=== PATIENT | female | born 1945 | race Caucasian/White ===

== ENCOUNTER 2017-12-29 10:14 | Emergency (ER) | payer OTHER ==
[2017-12-29 10:18] VITALS: BMI 25.4
--- NOTE | 2017-12-29 10:33 | PDOC ---
Attending Attestation - Resident Resident Name: Taisha Kay - HPI HPI: 12/29/17 11:44 pt presents to the ED complaining of acute exacerbation of her chronic vertigo. patient has a history of vertigo for which she has taken meclizine in the past. She is not currently taking meclizine. She has been experiencing vertigo , nausea and vomiting for a week, and has difficulty tolerating PO and some unsteadiness <Gladys Corona - Last Filed: 12/29/17 11:36> - Physicial Exam PE: 12/29/17 12:06 GENERAL: Awake, alert, and fully oriented, in no acute distress LUNGS: Breath sounds equal, clear to auscultation bilaterally. No wheezes, and no crackles HEART: Regular rate and rhythm, normal S1 and S2, no murmurs, rubs or gallops ABDOMEN: Soft, nontender, No guarding, no rebound. No masses NEUROLOGICAL: Cranial nerves II through XII grossly intact. Normal speech. - Medical Decision Making 12/29/17 12:06 Documentation prepared by Patricia Golden, acting as medical transcriber for Gladys Corona MD. <Patricia Golden - Last Filed: 12/29/17 12:06>
[2017-12-29] MEDS ORDERED: SODIUM CHLORIDE 0.9% 500 ML INFUS.BAG IV ONE (11:07)
[2017-12-29] MEDS ORDERED: ONDANSETRON *ODT* 4 MG TABLET SL ONE (11:07)
[2017-12-29] MEDS ORDERED: MECLIZINE HCL 25 MG TABLET (FP) PO ONE (11:07)
[2017-12-29 11:30] LABS: BASO % 0.8 % (0-2.0); EOS % 1.5 % (0-4.5); HEMATOCRIT 41.9 % (32.4-45.2); HEMOGLOBIN 13.8 GM/dL (10.7-15.3); MCH 28.2 pg (25.7-33.7); MEAN CELL VOLUME 85.2 fl (80-96); MEAN PLT VOLUME 8.4 fl (7.5-11.1); MONO % 10.3 % (3.8-10.2); NEUT % 54.4 % (42.8-82.8); PLATELET COUNT 243 K/MM3 (134-434); RBC 4.92 M/mm3 (3.60-5.2); RDW 14.3 % (11.6-15.6); WHITE BLOOD COUNT 6.2 K/mm3 (4.0-10.0)
[2017-12-29] MEDS ORDERED: ONDANSETRON *ODT* 4 MG TABLET ONE (11:35)
[2017-12-29] MEDS ORDERED: MECLIZINE HCL 25 MG TABLET (FP) ONE (11:35)
[2017-12-29 11:50] LABS: URINE APPEARANCE CLEAR; URINE BILIRUBIN NEGATIVE (<2.0 mg/dL); URINE COLOR STRAW; URINE GLUCOSE (UA) NEGATIVE (NEGATIVE); URINE KETONE NEGATIVE (NEGATIVE); URINE LEUK ESTERASE NEGATIVE (NEGATIVE); URINE NITRITE NEGATIVE (NEGATIVE); URINE PROTEIN NEGATIVE (NEGATIVE); URINE UROBILINOGEN NEGATIVE mg/dL (0.2-1.0)
[2017-12-29 12:07] LABS: ALBUMIN 3.5 g/dl (3.4-5.0); ALK PHOS 97 U/L (45-117); ANION GAP 7 MMOL/L (8-16); BILIRUBIN,TOTAL 0.4 mg/dL (0.2-1); BLOOD UREA NITROGEN 17 mg/dL (7-18); CALCIUM 8.4 mg/dL (8.5-10.1); CHLORIDE 110 mmol/L (98-107); CO2 26 mmol/L (21-32); CREATININE 0.5 mg/dL (0.55-1.3); GLUCOSE,RANDOM 85 mg/dL (74-106); MAGNESIUM 2.3 mg/dL (1.8-2.4); PHOSPHOROUS 3.3 mg/dL (2.5-4.9); POTASSIUM 4.6 mmol/L (3.5-5.1); SGOT/AST 16 U/L (15-37); SGPT/ALT 33 U/L (13-61); SODIUM 143 mmol/L (136-145); TOT PROT 6.8 g/dl (6.4-8.2)
[2017-12-29 12:21] VITALS: BP 142/74; PULSE 62; TEMP 97.6
--- NOTE | 2017-12-29 12:22 | PDOC ---
History of Present Illness - General Chief Complaint: Lightheaded Stated Complaint: DIZZINESS Time Seen by Provider: 12/29/17 10:32 - History of Present Illness Initial Comments: Neyda Harrell is a 72yo woman with a PMH of chronic vertigo who presents to the ED complaining of a near fall this morning due to dizziness. She describes the dizziness as feeling like the room is spinning, and she admits to having similar symptoms for at least a year. She previously saw a neurologist a year ago and was prescribed a medication that helped, but she never went back to the neurologist for follow up. Ms Harrell reports that in addition to the vertigo, she has had continued nausea with occasional vomiting after eating. She feels that she might be dehydrated as she does not think she is getting enough to eat or drink. She is unable to report exactly when these symptoms started, but she does state that they have been present for more a week. She has been taking ranitidine at home with some improvement, but she says that her regular doctor has not given her any prescriptions to help with the nausea. She also reports severe headache over her entire head. This has also been present for a long time. She is unable to report a pain score or describe the quality of the pain. She has never had her headaches worked up and has not tried taking any medications at home. Ms Harrell reports a fall at home about 2.5 weeks ago; she did not seek medical care at that time. She is concerned that she has a break or bleed in her head causing her headaches. She also states that she has continued right shoulder pain after the fall and is also concerned about a broken bone. She reports normal movement, strength, and sensation in her right arm. She denies any focal neurological symptoms including weakness, numbness/tingling, slurred speech, or facial droop. She denies any acute changes in her symptoms today or over the past few days. She has not had a fever, shivering chills, change in bowel habits, or sick contacts. She does not have any new medications. Past History - Past Medical History Allergies/Adverse Reactions: Allergies Allergy/AdvReac Type Severity Reaction Status Date / Time No Known Allergies Allergy Verified 12/29/17 10:18 Home Medications: Ambulatory Orders Acetaminophen [Tylenol .Regular Strength -] 650 mg PO BID PRN 06/05/13 Alendronate Na [Fosamax (Weekly)] 70 mg PO Q7D 06/05/13 Amlodipine Besylate [Norvasc -] 2.5 mg PO DAILY 06/05/13 Aspirin Coated [Ecotrin -] 81 mg PO DAILY 06/05/13 Cholecalciferol (Vitamin D3) [Vitamin D] 5,000 unit PO WEEKLY 06/05/13 Ketotifen Fumarate [Zaditor] 1 drop OP BID 06/05/13 Loratadine [Claritin -] 10 mg PO DAILY 06/05/13 Meclizine HCl [Antivert -] 12.5 mg PO TID PRN #30 tablet 06/05/13 Multivitamin [Multivitamins] 1 each PO DAILY 06/05/13 Meclizine HCl [Antivert -] 25 mg PO TID PRN 30 Days #90 tablet 12/29/17 Ondansetron [Zofran Odt -] 4 mg SL TID PRN #15 od.tablet 12/29/17 COPD: No HTN: Yes Kidney Stones: Yes - Suicide/Smoking/Psychosocial Hx Smoking History: Never smoked Review of Systems - Review of Systems Comments:: General: No fevers, no chills, no weight or appetite change, no malaise HEENT: No changes in vision, no changes in hearing, no congestion, no sore throat. +JAMA CV: No chest pain, no palpitations, no LE edema Pulm: No SOB, no cough, no wheezing GI: No change in bowel habits, no melena. +nausea and vomiting : No frequency, no urgency, no dysuria Musc: No back pain, no joint swelling. +Rt shoulder pain s/p fall at home ( 2.5mo ago) Skin: No rash, no lesions, no erythema Endo: No excessive thirst, no heat/cold intolerance Heme: No unusual bruising or bleeding, no swollen glands Neuro: No syncope, no numbness/tingling, no focal weakness. +Vertigo Vasc: No claudication Psych: No recent change in mood, no SI or HI *Physical Exam - Vital Signs Last Vital Signs Temp Pulse Resp BP Pulse Ox 97.8 F 68 16 148/68 98 12/29/17 10:15 12/29/17 11:02 12/29/17 11:02 12/29/17 11:02 12/29/17 11:02 - Physical Exam Comments: General: Comfortable, no acute distress HEENT: PERRL, EOMI, MMM, voice normal, normal neck ROM Cards: RRR, no murmur appreciated Pulm: Comfortable on room air, clear to auscultation bilaterally Abd: Soft, nontender, nondistended : No CVA tenderness Ext: Atraumatic. Mild non-pitting BLE edema. ROM intact. Strength 5/5 and equal bilaterally Vasc: Extremities WWP. Skin: Normal color, no rashes or lesions Neuro: A&Ox3, CN grossly intact, normal speech, motor/sensory grossly intact and symmetric. No focal neurological deficits. Psych: Mood appropriate to situation ED Treatment Course - LABORATORY CBC & Chemistry Diagram: 12/29/17 11:12 12/29/17 11:12 - ADDITIONAL ORDERS Additional order review: Laboratory Results 12/29/17 12/29/17 11:28 11:12 WBC 6.2 RBC 4.92 Hgb 13.8 Hct 41.9 MCV 85.2 MCH 28.2 MCHC 33.0 RDW 14.3 Plt Count 243 MPV 8.4 Absolute Neuts (auto) 3.4 Neutrophils % 54.4 D Lymphocytes % 33.0 D Monocytes % 10.3 H Eosinophils % 1.5 Basophils % 0.8 Nucleated RBC % 0 Urine Color Straw Urine Appearance Clear Urine pH 8.0 D Ur Specific [place] 1.014 Urine Protein Negative Urine Glucose (UA) Negative Urine Ketones Negative Urine Blood Negative Urine Nitrite Negative Urine Bilirubin Negative Urine Urobilinogen Negative Ur Leukocyte Esterase Negative 12/29/17 11:12 RBC 4.92 MCV 85.2 MCHC 33.0 RDW 14.3 MPV 8.4 Neutrophils % 54.4 D Lymphocytes % 33.0 D Monocytes % 10.3 H Eosinophils % 1.5 Basophils % 0.8 - RADIOLOGY Radiology Studies Ordered: Category Date Time Status HEAD CT WITHOUT CONTRAST [CT] Stat CT Scan 12/29/17 11:29 Ordered SHOULDER-RIGHT [RAD] Stat Radiology 12/29/17 11:07 Ordered - Medications Given in the ED: ED Medications Discontinued Medications Generic Name Dose Route Start Last Admin Trade Name Freq PRN Reason Stop Dose Admin Meclizine HCl 50 mg 12/29/17 11:07 12/29/17 11:37 Antivert - PO 12/29/17 11:08 50 mg ONCE ONE Administration Ondansetron HCl 4 mg 12/29/17 11:07 12/29/17 11:37 Zofran Odt - SL 12/29/17 11:08 4 mg ONCE ONE Administration Sodium Chloride 1,000 ml 12/29/17 11:07 12/29/17 11:26 Normal Saline - IV 12/29/17 11:08 1,000 ml ONCE ONE Administration Medical Decision Making - Medical Decision Making Age Julio Cesar is a 12/29/17 12:04 - CBC, CMP, mag, phos, UA, urine culture - Rt shoulder xray ordered per patient request - CT head to r/o acute pathology causing headaches - 1L NS bolus, meclizine, zofran for symptoms UPDATE: - Labs unrearkable - UA negative - Imaging without acute pathology - Continues to report headache and nausea, poor appetite - IV famotidine, IV acetaminophen for continued symptoms 12/29/17 14:38 - Able to tolerate PO challenge. Per her nurse, ate entire meal tray. Currently also eating burger/fries. - Discussed negative workup with Ms Harrell and her daughter - Will refer for follow up of headache, vertigo with neurology and shoulder pain with ortho - Discussed discharge, follow up, and return precautions with Ms Harrell and her daughter. They state understanding and agreement. Seen and discussed with Dr Corona. Taisha Kay PGY1 *DC/Admit/Observation/Transfer Diagnosis at time of Disposition: Vertigo Headache Qualifiers: Headache type: unspecified - Discharge Dispostion Disposition: HOME Condition at time of disposition: Stable Decision to Admit order: No - Prescriptions Prescriptions: Meclizine HCl [Antivert -] 25 mg PO TID PRN 30 Days #90 tablet PRN Reason: Vertigo Ondansetron [Zofran Odt -] 4 mg SL TID PRN #15 od.tablet PRN Reason: Nausea And/Or Vomiting - Referrals Referrals: Jennifer Chavira MD [Primary Care Provider] - James Eubanks MD [Staff Physician] - Israel Quiñonez MD [Staff Physician] - - Patient Instructions Printed Discharge Instructions: DI for Vertigo, DI for Shoulder Pain, DI for Headache Additional Instructions: Discharge Instructions: - You were seen in the ED for dizziness, headache, and nausea - All of your blood tests, head CT scan, and shoulder xray were normal - You were given IV hydration, an anti-nausea medication, an anti-vertigo ( dizziness) medication, an antacid, and acetaminophen - You should make follow up appointments with: - Your primary doctor within the next 2-3 days - An orthopedic surgeon, Dr Quiñonez, within the next 1-2 weeks for follow up of your shoulder pain - A neurology, Dr Eubanks, for follow up of your headaches and vertigo - You have been prescribed a medication to help with your dizziness (meclizine) and nausea (ondansetron). Please take as directed. You will need to see your primary physician or a neurologist for refills of these medications. - You may take acetaminophen (Tylenol) or ibuprofen (Motrin, Advil) for headache. Use as directed on the bottle. Check with your primary doctor about continuing ranitidine at home - Seek immediate medical care if you have focal neurological symptoms such as a facial droop, slurred speech, or weakness in one arm or leg; if you have significant vomiting and are unable to take any food or drink by mouth; or if you have sudden onset of a severe headache, especially if you also have neurological symptoms. - Post Discharge Activity Forms/Work/School Notes: Back to Work
[2017-12-29] MEDS ORDERED: ACETAMINOPHEN 1000 MG/100 ML VIAL (NON FORMULARY) IVPB ONE (12:30)
[2017-12-29] MEDS ORDERED: FAMOTIDINE 20 MG/50 ML IVPB 20 MG/50 ML MG IVPB ONE ×2 (12:30→12:44)
[2017-12-29] MEDS ORDERED: ACETAMINOPHEN INJECTION 100 ML IVPB ONE (12:43)
--- NOTE | 2017-12-29 13:53 | EKG ---
Test Reason : Blood Pressure : / mmHG Vent. Rate : 057 BPM Atrial Rate : 057 BPM P-R Int : 170 ms QRS Dur : 092 ms QT Int : 414 ms P-R-T Axes : 049 -15 012 degrees QTc Int : 402 ms SINUS BRADYCARDIA POSSIBLE LEFT ATRIAL ENLARGEMENT INCOMPLETE RIGHT BUNDLE BRANCH BLOCK LEFT VENTRICULAR HYPERTROPHY T WAVE ABNORMALITY, CONSIDER ANTERIOR ISCHEMIA ABNORMAL ECG WHEN COMPARED WITH ECG OF 05-JUN-2013 18:53, NO SIGNIFICANT CHANGE WAS FOUND Confirmed by MD Maria Guadalupe, Emmanuel ([id number]) on 12/29/2017 1:53:38 PM Referred By: Confirmed By:Emmanuel Lerma MD
== END 2017-12-29 14:52 | disposition home or self-care (01) ==
LOC: JER 10:14
PROC: 3E033GC Introduction of Other Therapeutic Substance into Peripheral Vein, Percutaneous Approach (ICD-10-PCS; principal; 2017-12-29)
PROC: 3E033NZ Introduction of Analgesics, Hypnotics, Sedatives into Peripheral Vein, Percutaneous Approach (ICD-10-PCS; 2017-12-29)
DX: R42 Dizziness and giddiness (principal); R51 Headache; Z91.81 History of falling; I10 Essential (primary) hypertension
CPT/HCPCS: 36415; 70450-TC; 73030-TC-RT-FY; 80053; 81003; 83735; 84100; 85025; 87086; 93005; 93010; 96365; 96375; 99284-25; J0131; Q0162

== ENCOUNTER 2019-02-01 19:21 | Emergency (ER) | payer OTHER ==
[2019-02-01 19:26] VITALS: TEMP 98.8; BMI 27.3
[2019-02-01] MEDS ORDERED: ACETAMINOPHEN 500 MG TABLET (FP) PO ONE (20:06)
--- NOTE | 2019-02-01 20:17 | PDOC ---
History of Present Illness - General Chief Complaint: Injury Stated Complaint: FALL Time Seen by Provider: 02/01/19 19:46 History Source: Patient, Care Provider Exam Limitations: No Limitations - History of Present Illness Initial Comments: 02/01/19 20:08 Patient is a 73-year-old female with history of Alzheimer's disease dementia, hypertension, GERD, left hip pain, varicose veins brought by home health aide for complaint of fall today. Home health aide states that she did not witness the fall, however got to the house at 3:00 PM and found the patient crying. Patient then complained that she fell unknown mechanism, but reported that she had pain to the left great toe. Home health aide was concerned because patient has a history of dizziness and high blood pressure so has brought the patient here for evaluation. She states that patient has not been feeling well and has had a cough, runny nose since yesterday. She vomited x2 today and has had decreased appetite but per aide this is usual for her. She received a flu shot 1 month ago. Denies any fever, chills, chest pain, shortness of breath. PMD: Dr. Radha Farley PMHX: as above PSOCHX: Lives at home with his son and a elderly ALL: NKDA GENERAL/CONSTITUTIONAL: [No fever or chills. No weakness. No weight change.] HEAD, EYES, EARS, NOSE AND THROAT: [No change in vision. No ear pain or discharge. No sore throat.] CARDIOVASCULAR: [No chest pain or shortness of breath.] RESPIRATORY: [(+) cough, wheezing, or hemoptysis.] GASTROINTESTINAL: [(+) nausea, vomiting, (-) diarrhea or constipation. No rectal bleeding.] GENITOURINARY: [No dysuria, frequency, or change in urination.] MUSCULOSKELETAL: [(+) joint or muscle swelling or pain. No neck or back pain.] SKIN AND BREASTS: [No rash or easy bruising.] NEUROLOGIC: [No headache, vertigo, loss of consciousness, or loss of sensation.] PSYCHIATRIC: [No depression or anxiety.] ENDOCRINE: [No increased thirst. No abnormal weight change.] HEMATOLOGIC/LYMPHATIC: [No anemia, easy bleeding, or history of blood clots.] ALLERGIC/IMMUNOLOGIC: [No hives or skin allergy. No latex allergy.] GENERAL: [The patient is awake, alert, and fully oriented, in no acute distress. ] HEAD: [Normal with no signs of trauma.] EYES: [Pupils equal, round and reactive to light, extraocular movements intact, sclera anicteric, conjunctiva clear.] ENT: [Ears normal, nares patent, oropharynx clear without exudates. Moist mucous membranes.] NECK: [Normal range of motion, supple without lymphadenopathy, JVD, or masses.] LUNGS: [Breath sounds equal, clear to auscultation bilaterally. No wheezes, and no crackles.] HEART: [Regular rate and rhythm, normal S1 and S2 without murmur, rub.] ABDOMEN: [Soft, nontender, normoactive bowel sounds. No guarding, no rebound. No masses.] EXTREMITIES: [(+) Swelling and ecchymosis to the left great toe, tenderness to palpation, normal range of motion, no edema. No clubbing or cyanosis. No cords , erythema, or tenderness.] NEUROLOGICAL: [Cranial nerves II through XII grossly intact. Normal speech, normal gait.] PSYCH: [Normal mood, normal affect.] SKIN: [Warm, Dry, normal turgor, no rashes or lesions noted.] Past History - Past Medical History Allergies/Adverse Reactions: Allergies Allergy/AdvReac Type Severity Reaction Status Date / Time No Known Allergies Allergy Verified 12/29/17 10:18 Home Medications: Ambulatory Orders Acetaminophen [Tylenol .Regular Strength -] 650 mg PO BID PRN 06/05/13 Alendronate Na [Fosamax (Weekly)] 70 mg PO Q7D 06/05/13 Amlodipine Besylate [Norvasc -] 2.5 mg PO DAILY 06/05/13 Aspirin Coated [Ecotrin -] 81 mg PO DAILY 06/05/13 Cholecalciferol (Vitamin D3) [Vitamin D] 5,000 unit PO WEEKLY 06/05/13 Ketotifen Fumarate [Zaditor] 1 drop OP BID 06/05/13 Loratadine [Claritin -] 10 mg PO DAILY 06/05/13 Meclizine HCl [Antivert -] 12.5 mg PO TID PRN #30 tablet 06/05/13 Multivitamin [Multivitamins] 1 each PO DAILY 06/05/13 Meclizine HCl [Antivert -] 25 mg PO TID PRN 30 Days #90 tablet 12/29/17 Ondansetron [Zofran Odt -] 4 mg SL TID PRN #15 od.tablet 12/29/17 COPD: No HTN: Yes Kidney Stones: Yes - Psycho Social/Smoking Cessation Hx Smoking History: Never smoked *Physical Exam - Vital Signs Last Vital Signs Temp Pulse Resp BP Pulse Ox 98.8 F 76 19 154/76 97 02/01/19 19:23 02/01/19 19:23 02/01/19 19:23 02/01/19 19:23 02/01/19 19:23 ED Treatment Course - LABORATORY CBC & Chemistry Diagram: 02/01/19 20:55 02/01/19 20:55 - RADIOLOGY Radiology Studies Ordered: Category Date Time Status CHEST PA & LAT [RAD] Stat Radiology 02/01/19 20:06 Ordered FOOT-LEFT [RAD] Stat Radiology 02/01/19 20:06 Ordered Medical Decision Making - Medical Decision Making 02/01/19 20:08 Patient is a 73-year-old female with history of Alzheimer's disease dementia, hypertension, GERD, left hip pain, varicose veins brought by home health aide for complaint of fall today. Home health aide states that she did not witness the fall, however got to the house at 3:00 PM and found the patient crying. Patient then complained that she fell unknown mechanism, but reported that she had pain to the left great toe. Home health aide was concerned because patient has a history of dizziness and high blood pressure so has brought the patient here for evaluation. She states that patient has not been feeling well and has had a cough, runny nose since yesterday. She vomited x2 today and has had decreased appetite but per aide this is usual for her. She received a flu shot 1 month ago. Denies any fever, chills, chest pain, shortness of breath. Patient with fall versus syncope Will get labs, EKG, chest x-ray Tylenol for pain Re-eval After the CAT scan was obtained, the aide (who now calls the patient francisco) said that mother told her that she stumped into the wall with her toe and then fell. 02/01/19 22:31 Patient Full Name: [email or web address] AGE Patient Accession No: [id number] Patient : [id number] Reason for Exam: fall Referring Physician: Patient Name: AGE GIANA THIS IS A PRELIMINARY REPORT FROM [facility] EXAM: CT Head wo IMAGES: 230 EXAM DATE AND TIME: 2019-02-01 21:26:33 HISTORY: 73 year old woman:Head trauma following a fall. COMPARISON: None TECHNIQUE: Non-contrast axial images were obtained. Coronal and sagittal images were also generated. FINDINGS: There are no intracranial hemorrhages, brain parenchymal contusion injuries, or imaged calvarial, facial or skull base fractures. There is no subcutaneous soft tissue swelling. The cerebral sulci and ventricles are normal in size. There are no intracranial hemorrhages, extra-axial fluid collections or evidence of an intra-axial mass lesion. There is no evidence of an acute or chronic ischemic lesion at this time. Orbital and petrous structures, cerebellopontine angles, and posterior fossa appear unremarkable. The paranasal and mastoid sinuses are clear. IMPRESSION: Normal CT scan of the head. No calvarial, facial or skull base fractures imaged on the current exam. No intracranial hemorrhages or brain parenchymal contusion injuries. . One or more of the following dose reduction techniques were used: automated exposure control, adjustment of the mA and/or kV according to patient size, use of iterative reconstructive technique. THIS DOCUMENT HAS BEEN ELECTRONICALLY SIGNED Oleg Fuentes MD. 02/01/2019 22:15 SYED Busch Please call Imaging Payroll Master [phone] ([phone]) with questions. INTERPRETING RADIOLOGIST: Oleg Fuentes MD Electronically Signed: Feb 01, 2019 10:15PM EST 02/01/19 22:32 Laboratory Tests 02/01/19 02/01/19 20:55 20:55 WBC 11.0 H Hgb 13.8 Hct 41.8 Plt Count 248 Sodium 141 Potassium 4.5 Chloride 107 Carbon Dioxide 27 Anion Gap 7 L BUN 21.4 H Creatinine 0.8 Troponin I < 0.02 EKG: SR at 62, left axis deviation, incomplete right bundle branch block, T wave inversion V1 to V3 02/01/19 22:47 I discussed the physical exam findings, ancillary test results and final diagnoses with the patient. I answered all of the patient's questions. The patient was satisfied with the care received and felt comfortable with the discharge plan and treatment plan. The Patient agrees to follow up with the primary care physician within 24-72 hours. Discharge - Discharge Information Problems reviewed: Yes Clinical Impression/Diagnosis: Fall Qualifiers: Encounter type: initial encounter Qualified Code(s): W19.XXXA - Unspecified fall, initial encounter Contusion, toe Qualifiers: Encounter type: initial encounter Toe: great toe Damage to nail status: without damage Laterality: left Qualified Code(s): S90.112A - Contusion of left great toe without damage to nail, initial encounter Condition: Stable Disposition: HOME - Follow up/Referral Referrals: Radha Farley MD [Primary Care Provider] - - Patient Discharge Instructions Patient Printed Discharge Instructions: DI for Contusion Additional Instructions: Your Discharge Instructions: You must call primary care physician within 24 hours to arrange follow-up. Return to the Emergency Department with any new, persistent or worsening symptoms, for fever, chills, SOB, dizziness or any other concerning changes that may occur. Continue to ice in 20-minute intervals and elevate the foot. - Post Discharge Activity
[2019-02-01] MEDS ORDERED: ACETAMINOPHEN 325 MG TABLET (FP) ONE (20:19)
[2019-02-01] MEDS ORDERED: FAMOTIDINE 20 MG TABLET PO ONE (20:57)
[2019-02-01] MEDS ORDERED: FAMOTIDINE 20 MG/50 ML IVPB 20 MG/50 ML MG IVPB ONE (21:12)
[2019-02-01 21:28] LABS: HEMATOCRIT 41.8 % (32.4-45.2); HEMOGLOBIN 13.8 GM/dL (10.7-15.3); MCH 28.4 pg (25.7-33.7); MEAN PLT VOLUME 8.9 fl (7.5-11.1); PLATELET COUNT 248 K/MM3 (134-434); RBC 4.86 M/mm3 (3.60-5.2); RDW 14.6 % (11.6-15.6)
[2019-02-01 21:32] LABS: ALBUMIN 3.6 g/dl (3.4-5.0); ALK PHOS 93 U/L (45-117); ANION GAP 7 MMOL/L (8-16); BILIRUBIN,TOTAL 0.4 mg/dL (0.2-1); BLOOD UREA NITROGEN 21.4 mg/dL (7-18); CHLORIDE 107 mmol/L (98-107); CO2 27 mmol/L (21-32); CREATININE 0.8 mg/dL (0.55-1.3); GLUCOSE,RANDOM 90 mg/dL (74-106); POTASSIUM 4.5 mmol/L (3.5-5.1); SGOT/AST 17 U/L (15-37); SGPT/ALT 29 U/L (13-61); SODIUM 141 mmol/L (136-145); TOT PROT 6.9 g/dl (6.4-8.2)
[2019-02-02 00:37] VITALS: BP 150/82; PULSE 80
--- NOTE | 2019-02-02 10:37 | EKG ---
Test Reason : Blood Pressure : / mmHG Vent. Rate : 062 BPM Atrial Rate : 062 BPM P-R Int : 166 ms QRS Dur : 092 ms QT Int : 412 ms P-R-T Axes : 061 -23 014 degrees QTc Int : 418 ms NORMAL SINUS RHYTHM POSSIBLE LEFT ATRIAL ENLARGEMENT INCOMPLETE RIGHT BUNDLE BRANCH BLOCK LEFT VENTRICULAR HYPERTROPHY NONSPECIFIC T WAVE ABNORMALITY ABNORMAL ECG WHEN COMPARED WITH ECG OF 29-DEC-2017 10:32, NO SIGNIFICANT CHANGE WAS FOUND Confirmed by FRANCE MONTESINOS, ANGEL ([id number]) on 02/02/2019 10:37:46 AM Referred By: Confirmed By:ANGEL HOUGH MD
== END 2019-02-02 00:38 | disposition home or self-care (01) ==
LOC: JER 19:21
DX: S90.112A Contusion of left great toe without damage to nail, initial encounter (principal); W18.39XA Other fall on same level, initial encounter; Y93.89 Activity, other specified; Y92.89 Other specified places as the place of occurrence of the external cause; G30.9 Alzheimer's disease, unspecified; F02.80 Dementia in other diseases classified elsewhere, unspecified severity, without behavioral disturbance, psychotic disturbance, mood disturbance, and anxiety; K21.9 Gastro-esophageal reflux disease without esophagitis; M25.552 Pain in left hip
CPT/HCPCS: 36415; 70450-TC; 71046-TC-FY; 73630-TC-LT; 80053; 82550; 84484; 85027; 93005; 93010; 99282-25

== ENCOUNTER 2019-02-27 00:56 | Inpatient (IN) | payer OTHER ==
--- NOTE | 2019-02-27 02:36 | PDOC ---
History of Present Illness - General Chief Complaint: Cold Symptoms Stated Complaint: COUGH Time Seen by Provider: 02/27/19 02:32 - History of Present Illness Initial Comments: 02/27/19 02:36 HPI: 73 y/o F with hx of Alzheimers dementia, HTN, GERD, chronic left hip pain, varicose veins presenting with chronic cough x1 month worsening over the past few days. Patient was seen in an urgent care 3 days ago and started on prednisone and albuterol for dx of bronchitis but symptoms have not improved. Last night the coughing worsened and was associated with SOB, chest pain, and mild apneic episode where patient states she could not breathe. Cough is productive of thick yellow sputum. Chest pain is a deep pain with radiation to the back and with pleurisy. She also reports sore throat. She denies fever, chills, rhinorrhea, n/v, travel, sick contacts. She has taken the flu vaccine this year. PMHx: as noted above ROS: as noted SHx: Denies tobacco use; no alcohol use; no rec drugs Allergies: NKDA ROS: GENERAL/CONSTITUTIONAL: No fever or chills. No weakness. HEAD, EYES, EARS, NOSE AND THROAT: No change in vision. No ear pain or discharge. No sore throat. CARDIOVASCULAR: +chest pain and shortness of breath RESPIRATORY: +cough; no wheezing, or hemoptysis. GASTROINTESTINAL: No nausea, vomiting, diarrhea or constipation. GENITOURINARY: No dysuria, frequency, or change in urination. MUSCULOSKELETAL: No joint or muscle swelling or pain. No neck or back pain. SKIN: No rash NEUROLOGIC: No headache, vertigo, loss of consciousness, or change in strength/ sensation. ENDOCRINE: No increased thirst. No abnormal weight change HEMATOLOGIC/LYMPHATIC: No anemia, easy bleeding, or history of blood clots. ALLERGIC/IMMUNOLOGIC: No hives or skin allergy. PE: GENERAL: Awake, alert, and fully oriented, no acute distress HEAD: No signs of trauma, normocephalic, atraumatic EYES: EOMI, sclera anicteric, conjunctiva clear ENT: Auricles normal inspection, hearing grossly normal, nares patent, oropharynx clear without exudates. Moist mucosa NECK: Normal ROM, no lymphadenopathy LUNGS: No increased work of breathing, symmetrical chest rise, coarse breath sounds in BL lung bases HEART: Regular rate and rhythm, normal S1 and S2, no murmur, peripheral pulses 2 + and equal bilaterally. ABDOMEN: Soft, nondistended, nontender, normoactive bowel sounds. No guarding, no rebound. No masses. No CVAT MUSCULOSKELETAL: Normal inspection, FROM NEUROLOGICAL: Cranial nerves II through XII grossly intact. Normal speech, normal gait, no focal sensorimotor deficits SKIN: Warm, Dry, normal turgor, no rashes or lesions noted Past History - Past Medical History Allergies/Adverse Reactions: Allergies Allergy/AdvReac Type Severity Reaction Status Date / Time No Known Allergies Allergy Verified 02/27/19 02:39 Home Medications: Ambulatory Orders Acetaminophen [Tylenol .Regular Strength -] 650 mg PO BID PRN 06/05/13 Alendronate Na [Fosamax (Weekly)] 70 mg PO Q7D 06/05/13 Amlodipine Besylate [Norvasc -] 2.5 mg PO DAILY 06/05/13 Aspirin Coated [Ecotrin -] 81 mg PO DAILY 06/05/13 Cholecalciferol (Vitamin D3) [Vitamin D] 5,000 unit PO WEEKLY 06/05/13 Ketotifen Fumarate [Zaditor] 1 drop OP BID 06/05/13 Loratadine [Claritin -] 10 mg PO DAILY 06/05/13 Meclizine HCl [Antivert -] 12.5 mg PO TID PRN #30 tablet 06/05/13 Multivitamin [Multivitamins] 1 each PO DAILY 06/05/13 Meclizine HCl [Antivert -] 25 mg PO TID PRN 30 Days #90 tablet 12/29/17 Ondansetron [Zofran Odt -] 4 mg SL TID PRN #15 od.tablet 12/29/17 COPD: No HTN: Yes Kidney Stones: Yes - Psycho Social/Smoking Cessation Hx Smoking History: Never smoked ED Treatment Course - LABORATORY CBC & Chemistry Diagram: 02/27/19 04:10 02/27/19 04:10 Medical Decision Making - Medical Decision Making 02/27/19 06:26 73 y/o F with hx of Alzheimers dementia, HTN, GERD, chronic left hip pain, varicose veins presenting with chronic cough x1 month worsening over the past few days associated with pleuritic chest pain and SOB. VSS, AF. PE with coarse breath sounds in BL lung bases. DDx includes CHF, PNA, Viral syndrome, ACS -cbc, cmp, bnp, trop, ekg, cxr, mg -ofirmev 02/27/19 06:29 WBC 14.4 BNP 504.6 BUN 22 Curb-65 2 points CXR with infiltrate/increased haziness along lateral heart border with concern for pna will admit for iv abx of pna; ceftriaxone and levaquin 2/2 recently on azithro 10 days ago pending mbmd 02/27/19 06:59 signed out to day team to followup admission Discharge - Discharge Information Problems reviewed: Yes Clinical Impression/Diagnosis: PNA (pneumonia) Qualifiers: Pneumonia type: due to unspecified organism Laterality: left Lung location: lower lobe of lung Qualified Code(s): J18.9 - Pneumonia, unspecified organism Condition: Stable - Admission Yes - Follow up/Referral Referrals: Radha Farley MD [Primary Care Provider] - - Patient Discharge Instructions - Post Discharge Activity
[2019-02-27] MEDS ORDERED: ACETAMINOPHEN 1000 MG/100 ML VIAL (NON FORMULARY) IVPB ONE (03:44)
[2019-02-27] MEDS ORDERED: ALBUTEROL SO4 2.5/IPRATROPIUM 0.5 INH SOL 3 ML VIAL.NEB. NEB ONE ×2 (03:44→04:16)
--- NOTE | 2019-02-27 03:58 | PDOC ---
Attending Attestation - Resident Resident Name: Godfrey,Heber - ED Attending Attestation I have performed the following: I have examined & evaluated the patient, The case was reviewed & discussed with the resident, I agree w/resident's findings & plan, Exceptions are as noted - HPI HPI: 03/03/19 01:41 73F pmh HTN, GERD, Alzheimers, with persistent productive cough for the past month, progressively worsening over the past several days. Was given prednisone , albuterol, azithro by urgent care/pcp w/o improvement. Pt here tonight because she has been having paroxysmal coughing with sob and now abdominal wall pain every time she coughs. - Physicial Exam PE: 03/03/19 01:44 Agree with exam as documented by resident - Medical Decision Making 03/03/19 01:45 pna tx failure? bronchitis? consider copd f/u labs, cxr, ekg Patient with severe paroxsymal coughing CXR possible infiltrate will tx presumed infection, symptomatic tx for comfort admit and follow clinical course
[2019-02-27 04:14] LABS: BASO % 0.7 % (0-2.0); EOS % 0.7 % (0-4.5); HEMATOCRIT 41.6 % (32.4-45.2); HEMOGLOBIN 13.6 GM/dL (10.7-15.3); LYMPH % 13.9 % (8-40); MCHC 32.7 g/dl (32.0-36.0); MEAN CELL VOLUME 85.6 fl (80-96); MEAN PLT VOLUME 8.6 fl (7.5-11.1); MONO % 8.5 % (3.8-10.2); NEUT % 76.2 % (42.8-82.8); PLATELET COUNT 206 K/MM3 (134-434); RBC 4.86 M/mm3 (3.60-5.2); RDW 14.4 % (11.6-15.6); WHITE BLOOD COUNT 14.4 K/mm3 (4.0-10.0)
[2019-02-27] MEDS ORDERED: ACETAMINOPHEN INJECTION 100 ML IVPB ONE (04:16)
[2019-02-27 04:40] LABS: ALBUMIN 3.7 g/dl (3.4-5.0); BILIRUBIN,TOTAL 0.7 mg/dL (0.2-1); CALCIUM 9.1 mg/dL (8.5-10.1); CREATININE 0.5 mg/dL (0.55-1.3); MAGNESIUM 2.2 mg/dL (1.8-2.4); POTASSIUM 3.8 mmol/L (3.5-5.1); TOT PROT 7.2 g/dl (6.4-8.2)
[2019-02-27] MEDS ORDERED: CEFTRIAXONE 1 GM in DEXTROSE 5%-WATER - 100 ML IVPB ONE (05:40)
[2019-02-27] MEDS ORDERED: cefTRIAXone SODIUM 1 GM VIAL ONE (06:49)
--- NOTE | 2019-02-27 08:04 | PN ---
Teaching Attending Note Name of Resident: Andrea Franco ATTENDING PHYSICIAN STATEMENT I saw and evaluated the patient. I reviewed the resident's note and discussed the case with the resident. I agree with the resident's findings and plan as documented with exceptions below. SUBJECTIVE: 73 yo [place] female, with PMhx of HTN, GERD/gastritis, last EGD 7 years ago, non smoker, comes with progressive cough for 1 month. reports is productive with thick yellow sputum, with multiple cough paroxysms with abdominal wall pain. No fevers, chills, sick contacts, recent travel, URI like illness or recent antibiotics. Was seen by PCP and placed on 5 days of azithromycin on 02/16. Given no improvement, was seen in urgent care recently and started 20 mg Prednisone and albuterol with not much b enefit, prompting her to come to the ED. Denies any chest pressure, orthopnea, PND, leg swelling, GERD like symptoms OBJECTIVE: Vital Signs Period Temp Pulse Resp BP Sys/Daniels Pulse Ox Last 24 Hr 98.2 F 77 18 151/78 95 Intake & Output 02/24/19 02/25/19 02/26/19 02/27/19 23:59 23:59 23:59 23:59 Weight 146 lb GENERAL: Awake, alert, and fully oriented, in no acute distress. HEAD: Normal with no signs of trauma. EYES: Pupils equal, round and reactive to light, extraocular movements intact, sclera anicteric, conjunctiva clear. No lid lag. EARS, NOSE, THROAT: Ears normal, nares patent, oropharynx clear without exudates. Moist mucous membranes, no pharyngeal erythema/tonsillar exudates or discharge noted. NECK: Normal range of motion, supple without lymphadenopathy, JVD, or masses. LUNGS: coarse rales scattered that clear with coughing, no rales or wheezing otherwise, good air entry HEART: Regular rate and rhythm, normal S1 and S2, sounds limited given coarse cough ABDOMEN: Soft, nontender, not distended, normoactive bowel sounds, no guarding, no rebound, no masses. No hepatomegaly or splenomegaly appreciated. MUSCULOSKELETAL: Normal range of motion at all joints. No bony deformities or tenderness. No CVA tenderness. UPPER EXTREMITIES: 2+ pulses, warm, well-perfused. No cyanosis. No clubbing. No peripheral edema. LOWER EXTREMITIES: varicosities, trace edema, no calf tenderness NEUROLOGICAL: AAOx3, facial symmetry, tongue midline, non focal exam, gait not observedCranial nerves II-XII intact. Normal speech. PSYCHIATRIC: Cooperative. Good eye contact. Appropriate mood and affect. SKIN: Warm, dry, normal turgor, no rashes or lesions noted, normal capillary refill. Home Medications Medication Instructions Recorded Acetaminophen [Tylenol .Regular 650 mg PO BID PRN 06/05/13 Strength -] Alendronate Na [Fosamax (Weekly)] 70 mg PO Q7D 06/05/13 Amlodipine Besylate [Norvasc -] 2.5 mg PO DAILY 06/05/13 Aspirin Coated [Ecotrin -] 81 mg PO DAILY 06/05/13 Cholecalciferol (Vitamin D3) 5,000 unit PO WEEKLY 06/05/13 [Vitamin D] Ketotifen Fumarate [Zaditor] 1 drop OP BID 06/05/13 Loratadine [Claritin -] 10 mg PO DAILY 06/05/13 Meclizine HCl [Antivert -] 12.5 mg PO TID PRN #30 tablet 06/05/13 Multivitamin [Multivitamins] 1 each PO DAILY 06/05/13 Meclizine HCl [Antivert -] 25 mg PO TID PRN 30 Days #90 tablet 12/29/17 Ondansetron [Zofran Odt -] 4 mg SL TID PRN #15 od.tablet 12/29/17 Active Medications Enoxaparin Sodium (Lovenox -) 40 mg SQ DAILY CLIFF Levofloxacin (Levaquin 750 Mg Premixed Ivpb -) 750 mg in 150 mls @ 150 mls/hr IVPB DAILY CLIFF; Protocol Methylprednisolone Sodium Succinate (Solu-Medrol -) 40 mg IVPUSH Q6H-IV CLIFF Pantoprazole Sodium (Protonix Iv) 40 mg IVPUSH DAILY [facility] Laboratory Results - last 24 hr 02/27/19 02/27/19 02/27/19 04:10 04:10 04:10 WBC 14.4 H RBC 4.86 Hgb 13.6 Hct 41.6 MCV 85.6 MCH 28.0 MCHC 32.7 RDW 14.4 Plt Count 206 MPV 8.6 Absolute Neuts (auto) 10.9 H Neutrophils % 76.2 D Lymphocytes % 13.9 D Monocytes % 8.5 Eosinophils % 0.7 Basophils % 0.7 Nucleated RBC % 0 Sodium 141 Potassium 3.8 Chloride 108 H Carbon Dioxide 26 Anion Gap 6 L BUN 22.0 H Creatinine 0.5 L Est GFR (CKD-EPI)AfAm 112.86 Est GFR (CKD-EPI)NonAf 97.37 Random Glucose 90 Calcium 9.1 Magnesium 2.2 Total Bilirubin 0.7 AST 65 H ALT 34 Alkaline Phosphatase 87 Creatine Kinase 77 Troponin I < 0.02 B-Natriuretic Peptide Total Protein 7.2 Albumin 3.7 02/27/19 04:10 WBC RBC Hgb Hct MCV MCH MCHC RDW Plt Count MPV Absolute Neuts (auto) Neutrophils % Lymphocytes % Monocytes % Eosinophils % Basophils % Nucleated RBC % Sodium Potassium Chloride Carbon Dioxide Anion Gap BUN Creatinine Est GFR (CKD-EPI)AfAm Est GFR (CKD-EPI)NonAf Random Glucose Calcium Magnesium Total Bilirubin AST ALT Alkaline Phosphatase Creatine Kinase Troponin I B-Natriuretic Peptide 504.6 H Total Protein Albumin EKG NSR, acute ST-T changes CXR results and images reviewed ASSESSMENT AND PLAN: 73 yof with PMhx of HTN, GERD/gastritis, admitted with intractable productive cough x 1 month -Suspected acute bronchitis -?Mild underlying COPD on CT chest in 08/2018,?etiology -Leucocytosis, suspect steroid induced demargination rather than infection -GERD/gastritis -HTN Plan: No clinical evidence of infection, failed outpatient treatment with azithromycin /prednisone [address] chest in 08/2018, suggests mild COPD, ?Undiagnosed, ?etiology, ?Second hand smoking. Will place on solumedrol 40 mg IV q8h. Standing and prn nebs. Levaquin/anti-tussives. CT chest, 2D Echo. Chest PT BID. Trial with PPI IV RVP, strep throat. Pulmonary input if fails to improve. Will need outpatient pulmonary follow up/ PFTs once current symptoms improve Amlodipine. DVTPPX lovenox PT eval Dispo pending clinical improvement. Ad[facility] to [facility] Total admit time 65 min.
--- NOTE | 2019-02-27 08:11 | HP ---
CHIEF COMPLAINT: cough PCP: Dr. Michelle HISTORY OF PRESENT ILLNESS: History obtained with assistance of son (Humberto- [phone]) Patient is a 73 year old female with history of hypertension, gastro-esophageal reflux, varicose veins, Alzheimer's, presents with complaint of cough. Endorses that cough has been ongoing for over a month, is persistent occurring daily, without palliative or identifiable provocative features. States cough is productive with thick yellow colored sputum, with an episode of blood streaked sputum four days ago. Patient visited primary care physician who prescribed Azithromycin for 5 days, which did not alleviate symptoms. Patient went to Urgent Care where she was prescribed Prednisone 20mg, and Albuterol for bronchitis. Patient admits compliance with medications, however symptoms have continued, prompting ED presentation. ER course was notable for: (1) CXR without infiltrates (2) WBC 14.4, patient afebrile (3) DuoNebs, IV Levofloxacin Recent Travel: [facility] (October 2018) PAST MEDICAL HISTORY: hypertension, gastro-esophageal reflux, varicose veins, Alzheimer's, PAST SURGICAL HISTORY: kidney stone Social History: Born in [facility]. Lives in apartment. Denies former occupation. Smoking: Denies smoking cigarettes Alcohol: Denies alcohol consumption Drugs: Denies illicit drug use Allergies No Known Allergies Allergy (Verified 02/27/19 02:39) HOME MEDICATIONS: Home Medications Ambulatory Orders Alendronate Na [Fosamax (Weekly)] 70 mg PO WEEKLY 06/05/13 Cholecalciferol (Vitamin D3) [Vitamin D] 5,000 unit PO WEEKLY 06/05/13 Multivitamin [Multivitamins] 1 cap PO DAILY 06/05/13 Amlodipine Besylate [Norvasc -] 5 mg PO DAILY 02/27/19 Donepezil HCl [Aricept -] 10 mg PO DAILY 02/27/19 Meclizine HCl [Antivert -] 25 mg PO DAILY PRN 02/27/19 Pantoprazole Sodium [Protonix] 40 mg PO DAILY 02/27/19 MEDICATIONS RECONCILED WITH PATIENT'S PHARMACY REVIEW OF SYSTEMS CONSTITUTIONAL: Absent: fever, chills, diaphoresis, generalized weakness, malaise, loss of appetite, weight change HEENT: Absent: rhinorrhea, nasal congestion, throat pain, throat swelling, difficulty swallowing, mouth swelling, ear pain, eye pain, visual changes CARDIOVASCULAR: Absent: chest pain, syncope, palpitations, irregular heart rate, lightheadedness , peripheral edema RESPIRATORY: Admits: cough. Absent: shortness of breath, dyspnea with exertion, orthopnea, wheezing, stridor, hemoptysis GASTROINTESTINAL: Absent: abdominal pain, abdominal distension, nausea, vomiting, diarrhea, constipation, melena, hematochezia GENITOURINARY: Absent: dysuria, frequency, urgency, hesitancy, hematuria, flank pain, genital pain MUSCULOSKELETAL: Absent: myalgia, arthralgia, joint swelling, back pain, neck pain SKIN: Absent: rash, itching, pallor HEMATOLOGIC/IMMUNOLOGIC: Absent: easy bleeding, easy bruising, lymphadenopathy, frequent infections ENDOCRINE: Absent: unexplained weight gain, unexplained weight loss, heat intolerance, cold intolerance NEUROLOGIC: Absent: headache, focal weakness or paresthesias, dizziness, unsteady gait, seizure, mental status changes, bladder or bowel incontinence PSYCHIATRIC: Absent: anxiety, depression, suicidal or homicidal ideation, hallucinations. PHYSICAL EXAMINATION Vital Signs - 24 hr 02/27/19 01:00 Temperature 98.2 F Pulse Rate 77 Respiratory 18 Rate Blood Pressure 151/78 O2 Sat by Pulse 95 Oximetry (%) GENERAL: Awake, alert, and fully oriented, in no acute distress. HEAD: Normal with no signs of trauma. EYES: Pupils equal, round and reactive to light, extraocular movements intact, sclera anicteric, conjunctiva clear. No lid lag. EARS, NOSE, THROAT: Ears normal, nares patent, oropharynx clear without exudates. Moist mucous membranes. NECK: Normal range of motion, supple without lymphadenopathy, JVD, or masses. LUNGS: Good inspiratory effort and air entery bilaterally. Rales auscultated bilaterally, negative wheezing. No accessory muscle use. HEART: Regular rate and rhythm, normal S1 and S2 without murmur, rub or gallop. ABDOMEN: Soft, nontender, not distended, normoactive bowel sounds, no guarding, no rebound, no masses. No hepatomegaly or splenomegaly. MUSCULOSKELETAL: Normal range of motion at all joints. No bony deformities or tenderness. No CVA tenderness. UPPER EXTREMITIES: 2+ pulses, warm, well-perfused. No cyanosis. No peripheral edema. LOWER EXTREMITIES: 2+ pulses, warm, well-perfused. No calf tenderness. Trace peripheral edema. Varicose veins noted bilaterally. NEUROLOGICAL: Cranial nerves II-XII intact. Normal speech. Normal gait. PSYCHIATRIC: Cooperative. Appropriate mood and affect. SKIN: Warm, dry, normal turgor. Noted right lower quadrant horizontal scar well healed, clean, dry. Laboratory Results - last 24 hr 02/27/19 02/27/19 02/27/19 04:10 04:10 04:10 WBC 14.4 H RBC 4.86 Hgb 13.6 Hct 41.6 MCV 85.6 MCH 28.0 MCHC 32.7 RDW 14.4 Plt Count 206 MPV 8.6 Absolute Neuts (auto) 10.9 H Neutrophils % 76.2 D Lymphocytes % 13.9 D Monocytes % 8.5 Eosinophils % 0.7 Basophils % 0.7 Nucleated RBC % 0 Sodium 141 Potassium 3.8 Chloride 108 H Carbon Dioxide 26 Anion Gap 6 L BUN 22.0 H Creatinine 0.5 L Est GFR (CKD-EPI)AfAm 112.86 Est GFR (CKD-EPI)NonAf 97.37 Random Glucose 90 Calcium 9.1 Magnesium 2.2 Total Bilirubin 0.7 AST 65 H ALT 34 Alkaline Phosphatase 87 Creatine Kinase 77 Troponin I < 0.02 B-Natriuretic Peptide Total Protein 7.2 Albumin 3.7 02/27/19 04:10 WBC RBC Hgb Hct MCV MCH MCHC RDW Plt Count MPV Absolute Neuts (auto) Neutrophils % Lymphocytes % Monocytes % Eosinophils % Basophils % Nucleated RBC % Sodium Potassium Chloride Carbon Dioxide Anion Gap BUN Creatinine Est GFR (CKD-EPI)AfAm Est GFR (CKD-EPI)NonAf Random Glucose Calcium Magnesium Total Bilirubin AST ALT Alkaline Phosphatase Creatine Kinase Troponin I B-Natriuretic Peptide 504.6 H Total Protein Albumin ASSESSMENT/PLAN: Patient is a 73 year old female with history of hypertension, gastro-esophageal reflux, varicose veins, Alzheimer's dementia, presents with complaint of cough. Bronchitis -Chronic cough likely secondary to bronchitis. Less likely infections as patient is afebrile; WBC of 14.4 could be explained by recent steroid use. Will obtain CT chest to evaluate. -Methyl-Prednisone 40mg IV Q8 hours -Will obtain throat culture, viral culture, influenza A/B, RSV, urine for legionella antigens, Group A strep -DuoNebs Q6 hours standing. Albuterol Q4 hours PRN -Robitussin AC 10mL Q8 hours -Levofloxacin -Chest PT -Consider pulmonary consult pending chest CT results Alzheimer's dementia -Continue Donepezil 10mg PO daily -Fall precautions Hypertension -Continue Amlodipine 5mg PO daily -Noted elevated BNP 504; will obtain transthoracic cardiac ECHO Gastroesohageal reflux -Abdominal discomfort likely secondary to GERD, worsened by increased coughing. -Protonix 40mg IV daily -Zofran 4mg IV Q6H PRN. QTc 451, will repeat EKG tomorrow to ensure no further QTc prolongation. FEN -Gentle hydration with IV normal saline at 42mL./ hour -Follow BMP -Sodium controlled diet Prophylaxis -Lovenox 40mg subq daily Disposition -Admit to Medical- Surgical floor. Visit type - Emergency Visit Emergency Visit: Yes ED Registration Date: 02/27/19 Care time: The patient presented to the Emergency Department on the above date and was hospitalized for further evaluation of their emergent condition. - New Patient This patient is new to me today: Yes Date on this admission: 02/27/19 - Critical Care Critical Care patient: No ATTENDING PHYSICIAN STATEMENT I saw and evaluated the patient. I reviewed the resident's note and discussed the case with the resident. I agree with the resident's findings and plan as documented. SUBJECTIVE: OBJECTIVE: ASSESSMENT AND PLAN:
[2019-02-27] MEDS ORDERED: ALBUTEROL SO4 0.083% IH SOL 2.5 MG/3 ML VIAL.NEB. NEB PRN (08:31)
[2019-02-27] MEDS ORDERED: MECLIZINE HCL 25 MG TABLET (FP) PO PRN (08:31)
[2019-02-27] MEDS ORDERED: methylPREDNISolone NA SUCC 40 MG/1 ML VIAL IVPUSH SCH (09:00)
[2019-02-27] MEDS ORDERED: PT OWN MED DRAWER 7, Y5N ONE (09:44)
[2019-02-27] MEDS ORDERED: methylPREDNISolone NA SUCC 40 MG/1 ML VIAL ONE (09:44)
[2019-02-27] MEDS ORDERED: amLODIPine BESYLATE 5 MG TABLET (FP) ONE (09:56)
[2019-02-27] MEDS ORDERED: DONEPEZIL HCL 5 MG TABLET (FP) ONE (09:57)
[2019-02-27] MEDS: ALBUTEROL SO4 2.5/IPRATROPIUM 0.5 INH SOL 3 ML VIAL.NEB. NEB SCH ×4 (10:28→20:11)
[2019-02-27] MEDS: DONEPEZIL HCL 10 MG TABLET (FP) PO SCH (10:28)
[2019-02-27] MEDS: ENOXAPARIN NA (PORCINE) 40 MG/0.4 ML DISP.SYRIN SQ SCH (10:29)
[2019-02-27] MEDS: methylPREDNISolone NA SUCC 40 MG/1 ML VIAL IVPUSH SCH ×2 (10:29→18:37)
[2019-02-27] MEDS: PANTOPRAZOLE SODIUM 40 MG VIAL IVPUSH SCH (10:29)
[2019-02-27] MEDS: amLODIPine BESYLATE 5 MG TABLET (FP) PO SCH (10:29)
[2019-02-27] MEDS ORDERED: guaiFENesin/CODEINE 5 ML UNIT-DOSE CUPS PO ONE (13:40)
[2019-02-27] MEDS ORDERED: MECLIZINE HCL 25 MG TABLET (FP) ONE (13:40)
--- NOTE | 2019-02-27 13:43 | EKG ---
Test Reason : Blood Pressure : / mmHG Vent. Rate : 073 BPM Atrial Rate : 073 BPM P-R Int : 164 ms QRS Dur : 090 ms QT Int : 410 ms P-R-T Axes : 054 -16 -03 degrees QTc Int : 451 ms POOR DATA QUALITY, INTERPRETATION MAY BE ADVERSELY AFFECTED NORMAL SINUS RHYTHM MODERATE VOLTAGE CRITERIA FOR LVH, MAY BE NORMAL VARIANT NONSPECIFIC T WAVE ABNORMALITY ABNORMAL ECG WHEN COMPARED WITH ECG OF 01-FEB-2019 23:39, NO SIGNIFICANT CHANGE WAS FOUND Confirmed by ALDEN VILLALOBOS MD ([id number]) on 02/27/2019 1:42:51 PM Referred By: Confirmed By:ALDEN VILLALOBOS MD
[2019-02-27] MEDS: ONDANSETRON 4 MG/2 ML VIAL IVPUSH SCH ×2 (14:00→22:04)
--- NOTE | 2019-02-27 15:23 | ECHO ---
Name: GIANA, AGE Exam:Adult Echocardiogram Study Date: 02/27/2019 02:39 PM Age: 73 yrs MMode/2D Measurements & Calculations IVSd: 0.99 cm Ao root diam: 3.2 cm LVIDd: 4.3 cm LA dimension: 3.5 cm LVIDs: 3.1 cm LVPWd: 1.3 cm LVPWs: 2.0 cm EDV(Teich): 81.8 ml ESV(Teich): 38.7 ml LVOT diam: 2.0 cm TAPSE: 1.5 cm RV S Papi: 15.8 cm/sec Doppler Measurements & Calculations MV E max papi: 68.6 cm/sec Ao V2 max: 149.3 cm/sec MV A max papi: 101.2 cm/sec Ao max P.9 mmHg MV E/A: 0.68 JOE(V,D): 2.5 cm2 MV dec time: 0.19 sec LV V1 max P.4 mmHg PA V2 max: 111.0 cm/sec LV V1 max: 116.0 cm/sec PA max P.9 mmHg Med Peak E' Papi: 4.8 cm/sec Med E/e': 14.2 Lat Peak E' Papi: 7.2 cm/sec Lat E/e': 9.5 Left Ventricle Left ventricular systolic function is normal. Ejection Fraction = 55-60%. The transmitral spectral Do ppler flow pattern is suggestive of impaired LV relaxation. Right Ventricle The right ventricle is normal in size and function. Atria Normal left and right atrial size and function. Mitral Valve The mitral valve is normal in structure and function. There is no mitral valve stenosis. There is mil d mitral regurgitation. Tricuspid Valve The tricuspid valve is normal in structure and function. There is mild tricuspid regurgitation. Right ventricular systolic pressure is normal. Aortic Valve The aortic valve opens well. No hemodynamically significant valvular aortic stenosis. No aortic regur gitation is present. Pulmonic Valve The pulmonic valve is not well seen, but is grossly normal. There is no pulmonic valvular stenosis. T here is no pulmonic valvular regurgitation. Great Vessels The aortic root is normal size. Pericardium/Pleura Trace to mild pericardial effusion, not hemodynamically significant. There are no echocardiographic indications of cardiac tamponade. Interpretation Summary Left ventricular systolic function is normal. Ejection Fraction = 55-60%. The transmitral spectral Doppler flow pattern is suggestive of impaired LV relaxation. The right ventricle is normal in size and function. There is mild mitral regurgitation. There is mild tricuspid regurgitation. Trace to mild pericardial effusion, not hemodynamically significant. There are no echocardiographic indications of cardiac tamponade. MD Metcalf *Ace 02/27/2019 03:22 PM
[2019-02-27] MEDS ORDERED: SODIUM CHLORIDE 1,000 ML IV SCH (16:15)
[2019-02-27 17:29] VITALS: BMI 28.1
[2019-02-28] MEDS ORDERED: ONDANSETRON 4 MG/2 ML VIAL IVPUSH PRN (01:39)
[2019-02-28] MEDS: methylPREDNISolone NA SUCC 40 MG/1 ML VIAL IVPUSH SCH ×2 (01:47→10:49)
[2019-02-28] MEDS: guaiFENesin/CODEINE 10 ML UNIT-DOSE CUPS PO PRN ×2 (02:10→21:11)
[2019-02-28 07:59] LABS: HEMATOCRIT 39.9 % (32.4-45.2); HEMOGLOBIN 13.1 GM/dL (10.7-15.3); MCH 28.4 pg (25.7-33.7); MCHC 32.8 g/dl (32.0-36.0); MEAN CELL VOLUME 86.6 fl (80-96); MEAN PLT VOLUME 8.8 fl (7.5-11.1); PLATELET COUNT 147 K/MM3 (134-434); RBC 4.61 M/mm3 (3.60-5.2); RDW 14.7 % (11.6-15.6); WHITE BLOOD COUNT 13.4 K/mm3 (4.0-10.0)
[2019-02-28] MEDS: ALBUTEROL SO4 2.5/IPRATROPIUM 0.5 INH SOL 3 ML VIAL.NEB. NEB SCH ×4 (08:17→19:35)
[2019-02-28 08:19] LABS: ALBUMIN 3.1 g/dl (3.4-5.0); BILIRUBIN,TOTAL 0.6 mg/dL (0.2-1); BLOOD UREA NITROGEN 18.1 mg/dL (7-18); CALCIUM 8.3 mg/dL (8.5-10.1); CREATININE 0.5 mg/dL (0.55-1.3); MAGNESIUM 2.4 mg/dL (1.8-2.4); POTASSIUM 4.2 mmol/L (3.5-5.1); TOT PROT 6.4 g/dl (6.4-8.2)
[2019-02-28] MEDS: DONEPEZIL HCL 10 MG TABLET (FP) PO SCH (10:48)
[2019-02-28] MEDS: amLODIPine BESYLATE 5 MG TABLET (FP) PO SCH (10:48)
[2019-02-28] MEDS: PANTOPRAZOLE SODIUM 40 MG VIAL IVPUSH SCH (10:49)
[2019-02-28] MEDS: ENOXAPARIN NA (PORCINE) 40 MG/0.4 ML DISP.SYRIN SQ SCH (10:50)
--- NOTE | 2019-02-28 13:28 | EKG ---
Test Reason : Blood Pressure : / mmHG Vent. Rate : 077 BPM Atrial Rate : 077 BPM P-R Int : 156 ms QRS Dur : 090 ms QT Int : 408 ms P-R-T Axes : 057 -19 005 degrees QTc Int : 461 ms SINUS RHYTHM WITH OCCASIONAL PREMATURE VENTRICULAR COMPLEXES VOLTAGE CRITERIA FOR LEFT VENTRICULAR HYPERTROPHY ABNORMAL ECG WHEN COMPARED WITH ECG OF 27-FEB-2019 06:29, PREMATURE VENTRICULAR COMPLEXES ARE NOW PRESENT Confirmed by MD ADA, АЛЕКСАНДР ([id number]) on 02/28/2019 1:27:43 PM Referred By: Maicol WHIPPLE Confirmed By:[id number] CABALLERO MD
--- NOTE | 2019-02-28 15:15 | PN ---
Physical Exam: SUBJECTIVE: Patient seen and examined, cough markedly better, breathing improved , no new complaints. OBJECTIVE: Vital Signs Period Temp Pulse Resp BP Sys/Daniels Pulse Ox Last 24 Hr 97.8 F-98.5 F 71-95 18-20 124-134/68-75 94-98 Intake & Output 02/25/19 02/26/19 02/27/19 02/28/19 23:59 23:59 23:59 23:59 Intake Total 84 450 Balance 84 450 Weight 144 lb 5 oz GENERAL:sitting in bed, no acute distress neck: soft, supple HEENT: PERRL, EOMI Chest: CTAb, no rales or wheezing, no coughing paroxysms during exam Abdomen:Soft, NT, ND, pos bowel sounds Extremities: no edema Home Medications Medication Instructions Recorded Alendronate Na [Fosamax (Weekly)] 70 mg PO WEEKLY 06/05/13 Cholecalciferol (Vitamin D3) 5,000 unit PO WEEKLY 06/05/13 [Vitamin D] Multivitamin [Multivitamins] 1 cap PO DAILY 06/05/13 Amlodipine Besylate [Norvasc -] 5 mg PO DAILY 02/27/19 Donepezil HCl [Aricept -] 10 mg PO DAILY 02/27/19 Meclizine HCl [Antivert -] 25 mg PO DAILY PRN 02/27/19 Pantoprazole Sodium [Protonix] 40 mg PO DAILY 02/27/19 Laboratory Results - last 24 hr 02/28/19 02/28/19 06:55 06:55 WBC 13.4 H RBC 4.61 Hgb 13.1 Hct 39.9 MCV 86.6 MCH 28.4 MCHC 32.8 RDW 14.7 Plt Count 147 D MPV 8.8 Sodium 141 Potassium 4.2 Chloride 110 H Carbon Dioxide 25 Anion Gap 6 L BUN 18.1 H Creatinine 0.5 L Est GFR (CKD-EPI)AfAm 112.86 Est GFR (CKD-EPI)NonAf 97.37 Random Glucose 143 H Calcium 8.3 L Phosphorus 3.0 Magnesium 2.4 Total Bilirubin 0.6 AST 14 L ALT 25 Alkaline Phosphatase 70 Total Protein 6.4 Albumin 3.1 L Active Medications Generic Name Dose Route Start Last Admin Trade Name Freq PRN Reason Stop Dose Admin Acetaminophen 650 mg 02/28/19 14:48 Tylenol - PO Q6H PRN HEADACHE Albuterol Sulfate 1 amp 02/27/19 08:31 Ventolin 0.083% Nebulizer Soln - NEB Q4H PRN SHORT OF BREATH/WHEEZING Albuterol/Ipratropium 1 amp 02/27/19 08:45 02/28/19 11:45 Duoneb - NEB 1 amp RQID [facility] Administration Amlodipine Besylate 5 mg 02/27/19 10:00 02/28/19 10:48 Norvasc - PO 5 mg DAILY [facility] Administration Donepezil HCl 10 mg 02/27/19 10:00 02/28/19 10:48 Aricept - PO 10 mg DAILY [facility] Administration Enoxaparin Sodium 40 mg 02/27/19 10:00 02/28/19 10:50 Lovenox - SQ 40 mg DAILY [facility] Administration Guaifenesin/Codeine Phosphate 10 ml 02/27/19 08:27 02/28/19 02:10 Robitussin Ac - PO 10 ml Q8H PRN Administration COUGH Levofloxacin 750 mg 03/01/19 10:00 Levaquin - PO DAILY [facility] Meclizine HCl 25 mg 02/27/19 08:31 Antivert - PO DAILY PRN VERTIGO Methylprednisolone Sodium Succinate 40 mg 02/28/19 20:00 Solu-Medrol - IVPUSH 02/28/19 20:01 Q12H [facility] Ondansetron HCl 4 mg 02/28/19 01:39 Zofran Injection IVPUSH Q6H PRN NAUSEA AND/OR VOMITING Pantoprazole Sodium 40 mg 02/27/19 10:00 02/28/19 10:49 Protonix Iv IVPUSH 40 mg DAILY [facility] Administration Prednisone 50 mg 03/01/19 10:00 Deltasone - PO DAILY [facility] Microbiology 02/27/19 09:55 Throat Throat Culture - Final NO BETA HEMOLYTIC STREPTOCOCCI ISOLATED ASSESSMENT/PLAN: 73 yof with PMhx of HTN, GERD/gastritis, admitted with intractable productive cough x 1 month -Acute bronchitis, suspect in the setting of recent URI like illness -?Mild underlying COPD on CT chest in 08/2018,not on repeat CT chest -Leucocytosis, suspect steroid induced demargination rather than infection -GERD/gastritis -HTN Plan: Markedly improved. taper steroids, standing and prn nebs. Change levaquin to PO for total [address] chest noted, neg for concerns. 2D echo noted. PPI, change to PO. Strep throat neg, urine PNA studies sent,follwo up. Amlodipine. DVTPPX lovenox Ambulatory oxygen needs in 24 hours Dc home in 24 hours on PO steroids/abx if continues to improve. Plan discussed with family at bedside in detail, all questions answered. Visit type - Emergency Visit Emergency Visit: Yes ED Registration Date: 02/27/19 Care time: The patient presented to the Emergency Department on the above date and was hospitalized for further evaluation of their emergent condition. - New Patient This patient is new to me today: No - Critical Care Critical Care patient: No - Discharge Referral Referred to [facility] Med P.C.: No
[2019-02-28] MEDS: ACETAMINOPHEN 325 MG TABLET (FP) PO PRN (17:42)
[2019-02-28] MEDS ORDERED: methylPREDNISolone NA SUCC 40 MG/1 ML VIAL IVPUSH SCH (20:00)
[2019-03-01] MEDS: ALBUTEROL SO4 2.5/IPRATROPIUM 0.5 INH SOL 3 ML VIAL.NEB. NEB SCH ×2 (07:35→10:55)
[2019-03-01 07:42] LABS: BASO % 0.1 % (0-2.0); HEMATOCRIT 40.6 % (32.4-45.2); HEMOGLOBIN 13.1 GM/dL (10.7-15.3); LYMPH % 5.7 % (8-40); MCHC 32.3 g/dl (32.0-36.0); MEAN CELL VOLUME 86.6 fl (80-96); MEAN PLT VOLUME 9.7 fl (7.5-11.1); MONO % 4.9 % (3.8-10.2); NEUT % 89.3 % (42.8-82.8); PLATELET COUNT 134 K/MM3 (134-434); RBC 4.68 M/mm3 (3.60-5.2); RDW 14.8 % (11.6-15.6); WHITE BLOOD COUNT 17.2 K/mm3 (4.0-10.0)
--- NOTE | 2019-03-01 07:59 | PN ---
Teaching Attending Note Name of Resident: Jose Miguel Clayton ATTENDING PHYSICIAN STATEMENT I saw and evaluated the patient. I reviewed the resident's note and discussed the case with the resident. I agree with the resident's findings and plan as documented with exceptions below. SUBJECTIVE: Patient seen and examined. Breathing/cough markedly improved. OBJECTIVE: Vital Signs Period Temp Pulse Resp BP Sys/Daniels Pulse Ox Last 24 Hr 97.7 F-97.9 F 79-102 18-20 110-143/61-76 94-97 Intake & Output 02/26/19 02/27/19 02/28/19 03/01/19 23:59 23:59 23:59 23:59 Intake Total 84 1400 Balance 84 1400 Weight 144 lb 5 oz General: sitting in bed, no acute distress neck: soft, supple Chest: CTAb, no rales or wheezing Abdomen:Soft, NT, ND, pos bowel sounds Extremities: no edema Home Medications Medication Instructions Recorded Alendronate Na [Fosamax (Weekly)] 70 mg PO WEEKLY 06/05/13 Cholecalciferol (Vitamin D3) 5,000 unit PO DAILY 06/05/13 [Vitamin D] Multivitamin [Multivitamins] 1 cap PO DAILY 06/05/13 Amlodipine Besylate [Norvasc -] 5 mg PO DAILY 02/27/19 Donepezil HCl [Aricept -] 10 mg PO DAILY 02/27/19 Meclizine HCl [Antivert -] 25 mg PO DAILY PRN 02/27/19 Pantoprazole Sodium [Protonix] 40 mg PO DAILY 02/27/19 Active Medications Acetaminophen (Tylenol -) 650 mg PO Q6H PRN PRN Reason: HEADACHE Last Admin: 02/28/19 17:42 Dose: 650 mg Albuterol Sulfate (Ventolin 0.083% Nebulizer Soln -) 1 amp NEB Q4H PRN PRN Reason: SHORT OF BREATH/WHEEZING Albuterol/Ipratropium (Duoneb -) 1 amp NEB RQID CLIFF Last Admin: 02/28/19 19:35 Dose: 1 amp Amlodipine Besylate (Norvasc -) 5 mg PO DAILY [facility] Last Admin: 02/28/19 10:48 Dose: 5 mg Donepezil HCl (Aricept -) 10 mg PO DAILY [facility] Last Admin: 02/28/19 10:48 Dose: 10 mg Enoxaparin Sodium (Lovenox -) 40 mg SQ DAILY [facility] Last Admin: 02/28/19 10:50 Dose: 40 mg Guaifenesin/Codeine Phosphate (Robitussin Ac -) 10 ml PO Q8H PRN PRN Reason: COUGH Last Admin: 02/28/19 21:11 Dose: 10 ml Levofloxacin (Levaquin -) 750 mg PO DAILY [facility] Meclizine HCl (Antivert -) 25 mg PO DAILY PRN PRN Reason: VERTIGO Ondansetron HCl (Zofran Injection) 4 mg IVPUSH Q6H PRN PRN Reason: NAUSEA AND/OR VOMITING Pantoprazole Sodium (Protonix -) 40 mg PO DAILY [facility] Prednisone (Deltasone -) 50 mg PO DAILY [facility] Laboratory Results - last 24 hr 02/28/19 02/28/19 03/01/19 06:55 06:55 06:16 WBC 13.4 H 17.2 H RBC 4.61 4.68 Hgb 13.1 13.1 Hct 39.9 40.6 MCV 86.6 86.6 MCH 28.4 28.0 MCHC 32.8 32.3 RDW 14.7 14.8 Plt Count 147 D 134 MPV 8.8 9.7 D Absolute Neuts (auto) 15.3 H Neutrophils % 89.3 H Lymphocytes % 5.7 L D Monocytes % 4.9 Eosinophils % 0.0 D Basophils % 0.1 Nucleated RBC % 0 Sodium 141 Potassium 4.2 Chloride 110 H Carbon Dioxide 25 Anion Gap 6 L BUN 18.1 H Creatinine 0.5 L Est GFR (CKD-EPI)AfAm 112.86 Est GFR (CKD-EPI)NonAf 97.37 Random Glucose 143 H Calcium 8.3 L Phosphorus 3.0 Magnesium 2.4 Total Bilirubin 0.6 AST 14 L ALT 25 Alkaline Phosphatase 70 Total Protein 6.4 Albumin 3.1 L 2D echo/CT chest results reviewed ASSESSMENT AND PLAN: 73 yof with PMhx of HTN, GERD/gastritis, admitted with intractable productive cough x 1 month -Acute bronchitis, suspect in the setting of recent URI like illness -?Mild underlying COPD on CT chest in 08/2018, not on repeat CT chest -Leucocytosis, suspect steroid induced demargination rather than infection -GERD/gastritis -HTN -Constipation Plan: Markedly improved. Change to PO prednisone, albuterol. Change levaquin to PO for total [address] chest noted, neg for concerns. 2D echo noted. PPI, change to PO. Strep throat neg, urine PNA studies sent,follow up. Amlodipine. Bowel regimen No home oxygen needs noted. DVTPPX lovenox dc home today with outpatient PCP/pulmonary follow up Plan discussed with patient and son at bedside in detail, all questions answered.
[2019-03-01] MEDS: ACETAMINOPHEN 325 MG TABLET (FP) PO PRN (09:09)
[2019-03-01] MEDS: DONEPEZIL HCL 10 MG TABLET (FP) PO SCH (09:12)
[2019-03-01] MEDS: amLODIPine BESYLATE 5 MG TABLET (FP) PO SCH (09:12)
[2019-03-01] MEDS: ENOXAPARIN NA (PORCINE) 40 MG/0.4 ML DISP.SYRIN SQ SCH (09:12)
[2019-03-01 09:17] VITALS: BP 127/66
[2019-03-01 09:57] VITALS: TEMP 97.4
[2019-03-01] MEDS ORDERED: PANTOPRAZOLE 40 MG TABLET (FP) PO SCH (10:00)
[2019-03-01] MEDS ORDERED: predniSONE 20 MG TABLET (UD) PO SCH (10:00)
[2019-03-01 10:02] VITALS: PULSE 71
--- NOTE | 2019-03-01 14:29 | DS ---
Physical Exam: SUBJECTIVE: Patient seen and examined. Feeling better than prior. No acute events overnight. Denies SOB, chest pain, abd pain, or other concerns. Patient stable for discharge today. Discussed with son at bedside. OBJECTIVE: Vital Signs Period Temp Pulse Resp BP Sys/Daniels Pulse Ox Last 24 Hr 97.4 F-97.9 F 71-102 20-20 110-133/61-76 94-98 PHYSICAL EXAM GENERAL: The patient is awake, alert, and fully oriented, in no acute distress. HEAD: Normal with no signs of trauma. EYES: EOMI, no ptosis ENT: MMM NECK: Trachea midline, full range of motion, supple. LUNGS: Breath sounds equal, clear to auscultation bilaterally, no wheezes, no crackles, no accessory muscle use. HEART: Regular rate and rhythm, S1, S2 without murmur, rub or gallop. ABDOMEN: Soft, nontender, nondistended, normoactive bowel sounds, no guarding, no rebound EXTREMITIES: 2+ pulses, warm, well-perfused, no edema. NEUROLOGICAL: Normal speech, gait not observed. PSYCH: Normal mood, normal affect. SKIN: Warm, dry, normal turgor, no rashes or lesions noted. LABS Laboratory Results - last 24 hr 03/01/19 06:16 WBC 17.2 H RBC 4.68 Hgb 13.1 Hct 40.6 MCV 86.6 MCH 28.0 MCHC 32.3 RDW 14.8 Plt Count 134 MPV 9.7 D Absolute Neuts (auto) 15.3 H Neutrophils % 89.3 H Lymphocytes % 5.7 L D Monocytes % 4.9 Eosinophils % 0.0 D Basophils % 0.1 Nucleated RBC % 0 HOSPITAL COURSE: Date of Admission:02/27/19 Date of Discharge: 03/01/19 Patient is a 73 year old female with history of hypertension, gastro-esophageal reflux, varicose veins, Alzheimer's dementia, presented to ED with complaint of cough. Imaging was done on admission without evidence of pneumonia. Patient was admitted for acute bronchitis. Patient had elevated WBC on admission, likely 2/ 2 to recent steroid use. Patient was treated with steroids, Levofloxacin, and albuterol/duonebs. ECHO was completed with normal EF and without significant abnormalities. Patient's home medications were continued appropriately. Throat cultures, strep test, flu tests were all negative. Patient stable for discharge , sent home with abx for two more days, inhaler for SOB/wheezing, and bowel regimen as patient complained of diarrhea. Minutes to complete discharge: 36 Discharge Summary Problems reviewed: Yes Reason For Visit: PNEUMONIA Condition: Stable - Instructions Diet, Activity, Other Instructions: You presented to the hospital with a cough that has been going on for over a month and were found to have Bronchitis. You were given IV antibiotics and steroids with improvement in your symptoms. You had a CT done of your chest which did not show any signs of pneumonia. You are being discharged home with antibiotics and steroids. Medication Changes: 1. Continue taking Levaquin for 2 more days as directed. 2. You are being prescribed steroids, please take as followinm/30 - 03/03 40m/1 - 03/05 30m/3 - 03/07 20m/5 - 03/09 10m/7 - 03/11 3. You are being prescribed an albuterol inhaler, please take as directed as needed for shortness of breath/wheezing. 4. For constipation you can take Colace 100mg twice a day, Senna twice a day as needed, Miralax once a day as needed Follow up with the following physicians: 1. Please follow up with your primary care provider within one week of discharge. 2. Please follow up with Dr. Watson, Operations Expert. Activity and Diet 1. You are being discharged home. Recommend daily exercise to strengthen your muscles. 2. Please continue to monitor your diet as you need to intake foods with less salt and fat. Drink plenty of fluids to stay hydrated. Continue all your other medications as prescribed Please return to the ER if you have any signs or symptoms of chest pain, shortness of breath, uncontrollable fever, chills, nausea, vomiting, numbness, tingling, or weakness in any part of your body, changes in vision, or slurred speech. Please return to the ER if symptoms persist, worsen, or new symptoms ar Referrals: Radha Farley MD [Primary Care Provider] - Dom Watson MD, MD [Staff Physician] - Disposition: HOME - Home Medications Comprehensive Discharge Medication List: Ambulatory Orders Alendronate Na [Fosamax (Weekly)] 70 mg PO WEEKLY 06/05/13 Cholecalciferol (Vitamin D3) [Vitamin D] 5,000 unit PO DAILY 06/05/13 Multivitamin [Multivitamins] 1 cap PO DAILY 06/05/13 Amlodipine Besylate [Norvasc -] 5 mg PO DAILY 02/27/19 Donepezil HCl [Aricept -] 10 mg PO DAILY 02/27/19 Meclizine HCl [Antivert -] 25 mg PO DAILY PRN 02/27/19 Pantoprazole Sodium [Protonix] 40 mg PO DAILY 02/27/19 Albuterol Sulfate Inhaler - [Ventolin HFA Inhaler -] 1 - 2 inh PO QID PRN #1 inhaler 03/01/19 Docusate Sodium [Colace] 100 mg PO BID #20 capsule 03/01/19 Levofloxacin [Levaquin] 750 mg PO DAILY #2 tablet 03/01/19 Polyethylene Glycol 3350 [Miralax (For Daily Use) -] 17 gm PO DAILY PRN #1 bottle 03/01/19 Sennosides [Senna] 8.6 mg PO BID PRN #20 tablet 03/01/19 predniSONE [Deltasone -] See Taper PO ASDIR #30 tab 03/01/19 This patient is new to me today: Yes Date on this admission: 03/01/19 Emergency Visit: No Critical Care patient: No - Discharge Referral Referred to [facility] Med P.C.: No ATTENDING PHYSICIAN STATEMENT I saw and evaluated the patient. I reviewed the resident's note and discussed the case with the resident. I agree with the resident's findings and plan as documented. SUBJECTIVE: OBJECTIVE: ASSESSMENT AND PLAN:
== END 2019-03-01 14:04 | disposition home or self-care (01) | DRG 199 ==
LOC: JER 00:56 → JERBED 06:30 → J5S 15:17
PROVIDERS: ADMIT Hospitalist; ATTEND Hospitalist
DX: I10 Essential (primary) hypertension (principal); K21.9 Gastro-esophageal reflux disease without esophagitis; G30.9 Alzheimer's disease, unspecified; F02.80 Dementia in other diseases classified elsewhere, unspecified severity, without behavioral disturbance, psychotic disturbance, mood disturbance, and anxiety; M25.552 Pain in left hip; I83.93 Asymptomatic varicose veins of bilateral lower extremities; J20.9 Acute bronchitis, unspecified; D72.829 Elevated white blood cell count, unspecified; K29.70 Gastritis, unspecified, without bleeding; K59.09 Other constipation; J44.9 Chronic obstructive pulmonary disease, unspecified
CPT/HCPCS: 36415; 71045-TC-FY; 71250-TC; 80053; 82550; 83735; 83880; 84100; 84484; 85025; 85027; 87070; 87804; 87880; 87899; 93005; 93010; 93306-TC; 94640; 94761; 97116-GP; 97161-GP; 99282-25; J0131; J7030

== ENCOUNTER 2023-12-19 13:14 | Inpatient (IN) | payer MEDICARE, OTHER ==
[2023-12-19 13:25] VITALS: BMI 26.4
[2023-12-19] MEDS: ACETAMINOPHEN 325 MG TABLET (FP) PO ONE (14:10)
[2023-12-19] MEDS: IBUPROFEN 400 MG TABLET (FP) PO ONE (14:10)
[2023-12-19] MEDS ORDERED: MORPHINE SULFATE 2 MG/ML SYRINGE ONE (15:17)
[2023-12-19] MEDS ORDERED: ACETAMINOPHEN 500 MG TABLET (FP) ONE (15:28)
[2023-12-19] MEDS: ACETAMINOPHEN 500 MG TABLET (FP) PO ONE (15:37)
[2023-12-19] MEDS: morphine CARPU-JECT 2 MG/1 ML DISP.SYRIN IVPUSH ONE (15:38)
[2023-12-19 15:43] LABS: BASO % 0.4 % (0-2.0); EOS % 0.1 % (0-4.5); HEMATOCRIT 41.8 % (32.4-45.2); HEMOGLOBIN 13.9 GM/dL (10.7-15.3); LYMPH % 8.4 % (8-40); MCH 28.2 pg (25.7-33.7); MCHC 33.2 g/dl (32.0-36.0); MONO % 5.6 % (3.8-10.2); NEUT % 85.5 % (42.8-82.8); PLATELET COUNT 282 10^3/uL (134-434); RBC 4.92 M/mm3 (3.60-5.2); RDW 14.3 % (11.6-15.6)
[2023-12-19 15:53] LABS: INR 1.02 (0.83-1.09); PROTHROMBIN TIME (PATIENT) 11.7 SEC (9.7-13.0)
[2023-12-19 15:55] LABS: ACTIVATED PTT 27.4 SECONDS (25.2-36.5)
[2023-12-19 16:02] LABS: POTASSIUM 3.6 mmol/L (3.5-5.1)
[2023-12-19 16:04] LABS: BLOOD UREA NITROGEN 16.6 mg/dL (7-18)
[2023-12-19 16:05] LABS: ALBUMIN 3.9 g/dl (3.4-5.0); CALCIUM 9.5 mg/dL (8.5-10.1)
[2023-12-19 16:07] LABS: CREATININE 0.6 mg/dL (0.55-1.3)
[2023-12-19 16:09] LABS: BILIRUBIN,TOTAL 0.6 mg/dL (0.2-1); TOT PROT 7.2 g/dl (6.4-8.2)
[2023-12-19] MEDS ORDERED: LIDOCAINE HCL 1%, 10 MG/ML (20ML VIAL) ONE (16:40)
[2023-12-19] MEDS: LIDOCAINE HCL 1%, 10 MG/ML (50 mL VIAL) SQ ONE (17:13)
[2023-12-19] MEDS ORDERED: ACETAMINOPHEN INJECTION 100 ML ONE (22:05)
[2023-12-19] MEDS: ACETAMINOPHEN 1000 MG/100 ML BAG IVPB ONE (22:21)
[2023-12-20 00:38] LABS: PH,URINE 5.5 (5.0-8.0); URINE APPEARANCE CLEAR; URINE BILIRUBIN NEGATIVE (NEGATIVE); URINE COLOR YELLOW; URINE GLUCOSE (UA) NEGATIVE (NEGATIVE); URINE KETONE NEGATIVE (NEGATIVE); URINE LEUK ESTERASE NEGATIVE (NEGATIVE); URINE NITRITE NEGATIVE (NEGATIVE); URINE PROTEIN NEGATIVE (NEGATIVE); URINE UROBILINOGEN 0.2 mg/dL (0.2-1.0)
[2023-12-20 05:23] VITALS: TEMP 98.3
[2023-12-20 08:17] LABS: HEMATOCRIT 37.2 % (32.4-45.2); HEMOGLOBIN 12.6 GM/dL (10.7-15.3); MCH 28.9 pg (25.7-33.7); MCHC 33.9 g/dl (32.0-36.0); MEAN CELL VOLUME 85.3 fl (80-96); MEAN PLT VOLUME 9.2 fl (7.5-11.1); PLATELET COUNT 240 10^3/uL (134-434); RBC 4.36 M/mm3 (3.60-5.2); RDW 14.2 % (11.6-15.6); WHITE BLOOD COUNT 9.4 K/mm3 (4.0-10.0)
[2023-12-20] MEDS ORDERED: MECLIZINE HCL 25 MG TABLET (FP) PO PRN (08:18)
[2023-12-20 08:33] LABS: POTASSIUM 3.7 mmol/L (3.5-5.1)
[2023-12-20 08:43] LABS: BILIRUBIN,TOTAL 0.5 mg/dL (0.2-1); TOT PROT 5.9 g/dl (6.4-8.2)
[2023-12-20 08:46] LABS: PHOSPHOROUS 3.1 mg/dL (2.5-4.9)
[2023-12-20 08:47] LABS: BLOOD UREA NITROGEN 14.9 mg/dL (7-18)
[2023-12-20 08:48] LABS: CALCIUM 8.9 mg/dL (8.5-10.1); MAGNESIUM 2.1 mg/dL (1.8-2.4)
[2023-12-20 08:50] LABS: CREATININE 0.4 mg/dL (0.55-1.3)
[2023-12-20 09:14] LABS: ALBUMIN 3.1 g/dl (3.4-5.0)
[2023-12-20] MEDS ORDERED: ACETAMINOPHEN 325 MG TABLET (FP) PO PRN (10:12)
[2023-12-20] MEDS ORDERED: ACETAMINOPHEN 1000 MG/100 ML BAG IVPB PRN (10:12)
[2023-12-20] MEDS ORDERED: amLODIPine BESYLATE 5 MG TABLET (FP) ONE (10:21)
[2023-12-20] MEDS ORDERED: PANTOPRAZOLE 40 MG TABLET PO ONE (10:21)
[2023-12-20 10:36] VITALS: BP 116/82; PULSE 82; RESP 16
[2023-12-20] MEDS: amLODIPine BESYLATE 5 MG TABLET (FP) PO SCH (11:02)
[2023-12-20] MEDS: PANTOPRAZOLE 40 MG TABLET PO SCH (11:02)
[2023-12-20] MEDS ORDERED: GABAPENTIN 300 MG CAPSULE PO SCH (22:00)
[2023-12-20] MEDS ORDERED: DONEPEZIL HCL 10 MG TABLET (FP) PO SCH (22:00)
== END 2023-12-20 16:38 | disposition home or self-care (01) | DRG 563 ==
LOC: JER 13:14 → OBSVTOIN 18:50 → JERBED 18:50
PROVIDERS: ADMIT Internal Medicine; ATTEND Nurse Practitioner Acute Care
PROC: 2W3FX1Z Immobilization of Left Hand using Splint (ICD-10-PCS; principal; 2023-12-19)
DX: S52.592A Other fractures of lower end of left radius, initial encounter for closed fracture (principal); S63.012A Subluxation of distal radioulnar joint of left wrist, initial encounter; I10 Essential (primary) hypertension; S00.83XA Contusion of other part of head, initial encounter; K21.9 Gastro-esophageal reflux disease without esophagitis; S00.12XA Contusion of left eyelid and periocular area, initial encounter; R42 Dizziness and giddiness; G30.9 Alzheimer's disease, unspecified; F02.80 Dementia in other diseases classified elsewhere, unspecified severity, without behavioral disturbance, psychotic disturbance, mood disturbance, and anxiety; W18.39XA Other fall on same level, initial encounter; Y93.9 Activity, unspecified; Y92.093 Driveway of other non-institutional residence as the place of occurrence of the external cause; Y99.9 Unspecified external cause status
CPT/HCPCS: 36415; 70450-TC; 70551-TC; 71045-TC-FY; 72125-TC; 72170-TC-FY; 73070-TC-LT-FY; 73090-TC-LT-FY; 73110-TC-LT-FY; 73130-TC-LT-FY; 80053; 80061; 81003; 83036; 83735; 84100; 84443; 84484; 85025; 85027; 85610; 85730; 86850; 86900; 86901; 87086; 93306-TC; 93880-TC; 99285-25; J0131